=== PATIENT | female | born 1995 | race Caucasian/White ===

== ENCOUNTER 2018-08-24 17:02 | Emergency (ER) | payer OTHER ==
--- NOTE | 2018-08-24 17:32 | ER Report ---
History and Physical Time Seen By MD: 17:33 HPI/ROS CHIEF COMPLAINT: Dizziness HISTORY OF PRESENT ILLNESS: This is a 22-year-old female presents to the emergency department for dizziness and lightheadedness. Patient states that about 2 hours prior to arrival she began to have some lightheadedness, dizziness, nausea and mild chest discomfort. On the drive here she became somewhat nauseous however that his improved, chest pain is improved as well lightheadedness and dizziness improves as well. No visual disturbances. No fevers or chills. No rashes. No meningismus. REVIEW OF SYSTEMS: Constitutional: No fever, no chills. Eyes: No discharge. ENT: No sore throat. Cardiovascular: As above. Respiratory: No cough, no shortness of breath. Gastrointestinal: As above. Genitourinary: No hematuria. Musculoskeletal: No back pain. Skin: No rashes. Neurological: No headache. Allergies: Coded Allergies: No Known Drug Allergies (Unverified , 08/24/18) Home Meds No Active Prescriptions or Reported Meds Past Medical/Surgical History The patient has no significant past medical or surgical history. Reviewed Nurses Notes: Yes Hx Substance Use Disorder: No Hx Alcohol Use: No Constitutional Vital Sign - Last 24 Hours 08/24/18 08/24/18 08/24/18 08/24/18 17:02 17:07 17:12 17:32 Temp 98.1 Pulse ??? 63 57 Resp 20 B/P (MAP) 120/88 120/88 (99) Pulse Ox 96 95 O2 Delivery Room Air 08/24/18 08/24/18 08/24/18 08/24/18 17:47 17:48 17:53 18:02 Pulse 61 67 B/P (MAP) 110/73 (85) 95/79 (84) 120/88 (99) 110/73 (85) 95/79 (84) Pulse Ox 95 98 O2 Delivery Room Air 08/24/18 08/24/18 08/24/18 08/24/18 18:12 18:15 18:30 18:45 B/P (MAP) 106/73 (84) 116/73 (87) 95/59 (71) 107/77 (87) 08/24/18 19:00 B/P (MAP) 117/75 (89) Physical Exam General Appearance: The patient is alert, has no immediate need for airway protection and no signs of toxicity. Eyes: Pupils equal and round no pallor or injection. ENT, Mouth: Mucous membranes are moist. Respiratory: There are no retractions, lungs are clear to auscultation. Cardiovascular: Regular rate and rhythm, very faint systolic murmur, no clicks or rubs. Gastrointestinal: Abdomen is soft and non tender, no masses, bowel sounds liliam l. Neurological: Alert and oriented 4. Moving all extremities. Following all commands. No focal neuro deficits. Skin: Warm and dry, no rashes. Musculoskeletal: Neck is supple non tender. Extremities are nontender, nonswollen and have full range of motion. DIFFERENTIAL DIAGNOSIS: After history and physical exam differential diagnosis was considered for dizziness including but not limited to peripheral and central causes of vertigo, orthostatic causes including dehydration, and blood loss. Medical Decision Making Data Points Result Diagram: 08/24/18180508/24/181805 Laboratory Hematology Test 08/24/18 17:08 08/24/18 18:06 Urine Color Straw Urine Clarity Clear Urine pH 5.0 pH (4.8-9.5) Urine Specific [place] 1.009 Urine Protein Negative mg/dL (NEGATIVE) Urine Glucose (UA) Negative mg/dL (NEGATIVE) Urine Ketones Negative mg/dL (NEGATIVE) Urine Blood Small (NEGATIVE) Urine Nitrite Negative (NEGATIVE) Urine Bilirubin Negative (NEGATIVE) Urine Urobilinogen Negative mg/dL (0.2-1.9) Urine Leukocyte Esterase Negative (NEGATIVE) Urine RBC None /HPF (0-2/HPF) Urine WBC 1 /HPF (0-5/HPF) Urine Squamous Epithelial Cells Many /LPF (</=FEW) Urine Bacteria Negative /HPF (NONE-FEW) Urine Mucus None /HPF (NONE-FEW) Red Blood Count 5.23 M/uL (4.17-5.56) Mean Corpuscular Volume 88.3 fL (80.0-96.0) Mean Corpuscular Hemoglobin 30.5 pg (26.0-33.0) Mean Corpuscular Hemoglobin Concent 34.5 g/dL (32.0-36.0) Red Cell Distribution Width 12.9 % (11.5-14.5) Mean Platelet Volume 8.4 fL (7.2-11.1) Neutrophils (%) (Auto) 54.7 % (39.4-72.5) Lymphocytes (%) (Auto) 33.3 % (17.6-49.6) Monocytes (%) (Auto) 10.1 % (4.1-12.4) Eosinophils (%) (Auto) 1.5 % (0.4-6.7) Basophils (%) (Auto) 0.4 % (0.3-1.4) Nucleated RBC Relative Count (auto) 0.1 /100WBC Neutrophils # (Auto) 5.5 K/uL (2.0-7.4) Lymphocytes # (Auto) 3.4 K/uL (1.3-3.6) Monocytes # (Auto) 1.0 K/uL (0.3-1.0) Eosinophils # (Auto) 0.2 K/uL (0.0-0.5) Basophils # (Auto) 0.0 K/uL (0.0-0.1) Nucleated RBC Absolute Count (auto) 0.01 K/uL Sodium Level 140 mmol/L (137-145) Potassium Level 3.7 mmol/L (3.5-5.0) Chloride Level 104 mmol/L (98-107) Carbon Dioxide Level 24 mmol/L (22-31) Blood Urea Nitrogen 13 mg/dl (7-18) Creatinine 0.70 mg/dl (0.52-1.04) Glomerular Filtration Rate Calc > 60.0 Random Glucose 91 mg/dl (75-110) Calcium Level 9.7 mg/dl (8.4-10.2) Total Bilirubin 0.4 mg/dl (0.2-1.3) Aspartate Amino Transf (AST/SGOT) 26 U/L (0-35) Alanine Aminotransferase (ALT/SGPT) 26 U/L (0-56) Alkaline Phosphatase 57 U/L (0-126) Total Protein 8.5 g/dl (6.3-8.2) Albumin 4.3 g/dl (3.5-5.0) Human Chorionic Gonadotropin, Qual Negative (NEGATIVE) Chemistry Test 08/24/18 17:08 08/24/18 18:06 Urine Color Straw Urine Clarity Clear Urine pH 5.0 pH (4.8-9.5) Urine Specific [place] 1.009 Urine Protein Negative mg/dL (NEGATIVE) Urine Glucose (UA) Negative mg/dL (NEGATIVE) Urine Ketones Negative mg/dL (NEGATIVE) Urine Blood Small (NEGATIVE) Urine Nitrite Negative (NEGATIVE) Urine Bilirubin Negative (NEGATIVE) Urine Urobilinogen Negative mg/dL (0.2-1.9) Urine Leukocyte Esterase Negative (NEGATIVE) Urine RBC None /HPF (0-2/HPF) Urine WBC 1 /HPF (0-5/HPF) Urine Squamous Epithelial Cells Many /LPF (</=FEW) Urine Bacteria Negative /HPF (NONE-FEW) Urine Mucus None /HPF (NONE-FEW) White Blood Count 10.1 k/uL (4.5-11.0) Red Blood Count 5.23 M/uL (4.17-5.56) Hemoglobin 15.9 g/dL (12.0-16.0) Hematocrit 46.2 % (34.0-47.0) Mean Corpuscular Volume 88.3 fL (80.0-96.0) Mean Corpuscular Hemoglobin 30.5 pg (26.0-33.0) Mean Corpuscular Hemoglobin Concent 34.5 g/dL (32.0-36.0) Red Cell Distribution Width 12.9 % (11.5-14.5) Platelet Count 276 K/uL (150-450) Mean Platelet Volume 8.4 fL (7.2-11.1) Neutrophils (%) (Auto) 54.7 % (39.4-72.5) Lymphocytes (%) (Auto) 33.3 % (17.6-49.6) Monocytes (%) (Auto) 10.1 % (4.1-12.4) Eosinophils (%) (Auto) 1.5 % (0.4-6.7) Basophils (%) (Auto) 0.4 % (0.3-1.4) Nucleated RBC Relative Count (auto) 0.1 /100WBC Neutrophils # (Auto) 5.5 K/uL (2.0-7.4) Lymphocytes # (Auto) 3.4 K/uL (1.3-3.6) Monocytes # (Auto) 1.0 K/uL (0.3-1.0) Eosinophils # (Auto) 0.2 K/uL (0.0-0.5) Basophils # (Auto) 0.0 K/uL (0.0-0.1) Nucleated RBC Absolute Count (auto) 0.01 K/uL Glomerular Filtration Rate Calc > 60.0 Calcium Level 9.7 mg/dl (8.4-10.2) Total Bilirubin 0.4 mg/dl (0.2-1.3) Aspartate Amino Transf (AST/SGOT) 26 U/L (0-35) Alanine Aminotransferase (ALT/SGPT) 26 U/L (0-56) Alkaline Phosphatase 57 U/L (0-126) Total Protein 8.5 g/dl (6.3-8.2) Albumin 4.3 g/dl (3.5-5.0) Human Chorionic Gonadotropin, Qual Negative (NEGATIVE) Urinalysis Test 08/24/18 17:08 Urine Color Straw Urine Clarity Clear Urine pH 5.0 pH (4.8-9.5) Urine Specific [place] 1.009 Urine Protein Negative mg/dL (NEGATIVE) Urine Glucose (UA) Negative mg/dL (NEGATIVE) Urine Ketones Negative mg/dL (NEGATIVE) Urine Blood Small (NEGATIVE) Urine Nitrite Negative (NEGATIVE) Urine Bilirubin Negative (NEGATIVE) Urine Urobilinogen Negative mg/dL (0.2-1.9) Urine Leukocyte Esterase Negative (NEGATIVE) Urine RBC None /HPF (0-2/HPF) Urine WBC 1 /HPF (0-5/HPF) Urine Squamous Epithelial Cells Many /LPF (</=FEW) Urine Bacteria Negative /HPF (NONE-FEW) Urine Mucus None /HPF (NONE-FEW) EKG/Imaging EKG Interpretation 12 lead EKG: Time of EKG 1759. Rhythm: Normal sinus rhythm, ventricular rate 62 bpm. Garibaldi: normal QRS: normal ST segments: No ST depression or elevation identified. No previous EKGs for comparison. Imaging HISTORY: Lightheaded, dizzy, mild chest pain COMPARISON: None. FINDINGS: The lungs are clear. No focal consolidation or pleural fluid. No pneumothorax. Normal cardiomediastinal silhouette, with normal heart size and pulmonary vascularity. Visualized osseous structures are unremarkable. IMPRESSION: Negative chest. Report Dictated By: Brian Ramirez MD at 08/24/2018 6:40 PM Report E-Signed By: Brian Ramirez MD at 08/24/2018 6:45 PM WSN:[id number] ED Course/Re-evaluation Clinical Indication for ER IV: Hydration, IV Access ED Course The patient was admitted to room. Extremities were obtained. Differential diagnoses were considered. IV was started. A 1 L normal saline bolus was given. A CBC, CMP. 4 mg IV Zofran were given. Laboratory studies unremarkable. Patient states feeling significantly better after the saline bolus and the Zofran. Two-v iew chest x-ray was negative for any acute cardiopulmonary process. EKG showing normal sinus rhythm. I did review the results with the patient. I do feel that the symptoms that the patient is experiencing today are secondary to lack of fluid intake as well as lack of food since this morning. The patient expressed understanding. I did recommend following up with a primary care provider for reevaluation. The patient was discharged home. Decision to Disposition Date: Aug 24, 2018 Decision to Disposition Time: 18:57 Depart Departure Latest Vital Signs Vital Signs Date Time Temp Pulse Resp B/P (MAP) Pulse Ox O2 Delivery O2 Flow Rate FiO2 08/24/18 19:00 117/75 (89) 08/24/18 18:02 67 98 08/24/18 17:53 Room Air 08/24/18 17:07 98.1 20 Impression: Primary Impression: Dizziness Additional Impression: Dehydration Condition: Improved Disposition: HOME OR SELF-CARE New Scripts No Active Prescriptions or Reported Meds Patient Instructions: Dehydration (ED), Dizziness (ED) Additional Instructions: There are no concerning findings on your EKG. Your blood work and chest xray do not show anything concerning today. Be sure to drink plenty of fluids. Get plenty of rest. Return to the ED for any other concerns or worsening symptoms. Problem Qualifiers EMELI VASQUEZ CAREER ORIENTATION TEACHER-BC Aug 24, 2018 17:32
[2018-08-24] MEDS ORDERED: NS(*) 0.9% 1000 ML BAG 1,000 ML IV ONE (17:44)
[2018-08-24] MEDS ORDERED: ONDANSETRON 4 MG/2 ML VIAL IVP ONE (17:45)
[2018-08-24 18:18] LABS: PLATELET COUNT, AUTOMATED 276 K/uL (150-450)
--- NOTE | 2018-08-24 18:24 | EKG ---
FACILITY: [facility] PATIENT NAME: KEISHA CHANEL : [id number] MR: [id number] V: [id number] EXAM DATE: ORDERING PHYSICIAN: EMELI VASQUEZ TECHNOLOGIST: Test Reason : lightheaded and dizzy Blood Pressure : / mmHG Vent. Rate : 062 BPM Atrial Rate : 062 BPM P-R Int : 174 ms QRS Dur : 074 ms QT Int : 426 ms P-R-T Axes : 063 058 046 degrees QTc Int : 432 ms Normal sinus rhythm Normal ECG No previous ECGs available Confirmed by Meño Glasgow [id number] on 08/24/2018 11:00:44 PM Referred By: Confirmed By:Meño Larose
--- NOTE | 2018-08-24 18:48 | RADIOLOGY IMAGING REPORT ---
[facility] PATIENT NAME: María Elena Ferreira : 1995 MR: [id number] V: [id number] EXAM DATE: ORDERING PHYSICIAN: EMELI VASQUEZ TECHNOLOGIST: Location: [facility] - [place] Patient: María Elena Ferreira : 1995 Visit/Account:[id number] Date of Sevice: 08/24/2018 EXAMINATION: Chest 2 Views HISTORY: Lightheaded, dizzy, mild chest pain COMPARISON: None. FINDINGS: The lungs are clear. No focal consolidation or pleural fluid. No pneumothorax. Normal cardiomedias tinal silhouette, with normal heart size and pulmonary vascularity. Visualized osseous structures ar e unremarkable. IMPRESSION: Negative chest. Report Dictated By: Brian Ramirez MD at 08/24/2018 6:40 PM Report E-Signed By: Brian Ramirez MD at 08/24/2018 6:45 PM WSN:[id number]
[2018-08-24 19:00] VITALS: BP 117/75
== END 2018-08-24 19:03 | disposition home or self-care (01) ==
LOC: ER 17:28
DX: R42 Dizziness and giddiness (principal); E86.0 Dehydration
CPT/HCPCS: 71046; 81001; 84703; 85025; 93005; 96361; 96374; 99284; J2405; J7030; 82040; 82247; 82310; 82374; 82435; 82565; 82947; 84075; 84132; 84155; 84295; 84450; 84460; 84520